=== PATIENT | female | born 1970 | race Caucasian/White ===

== ENCOUNTER 2023-11-29 14:17 | Inpatient (IN) | payer OTHER ==
[2023-11-29 15:15] VITALS: BMI 16.9
[2023-11-29] MEDS: INSULIN (NOVOLOG) ASPART 100 UNITS/ML 10ML VIAL SQ ONE (16:03)
[2023-11-29] MEDS ORDERED: DICYCLOMINE HCL 10 MG CAPSULE PO PRN (17:26)
[2023-11-29] MEDS ORDERED: POLYETHYLENE GLYCOL (HEALTHYLAX) 3350 17 GM PACKET PO PRN (17:26)
[2023-11-29] MEDS ORDERED: ONDANSETRON *ODT* 4 MG TABLET SL PRN (17:26)
[2023-11-29] MEDS ORDERED: MAGNESIUM HYDROX 2400MG/30ML ORAL SUSPENSION 30 ML CUP PO PRN (17:26)
[2023-11-29] MEDS ORDERED: diazePAM 5 MG TABLET PO PRN (17:26)
[2023-11-29] MEDS ORDERED: BENZONATATE 200 MG CAPSULE PO PRN (17:26)
[2023-11-29] MEDS ORDERED: IBUPROFEN 400 MG TABLET (FP) PO PRN (17:26)
[2023-11-29] MEDS ORDERED: NALOXONE HCL (KLOXXADO) 8 MG SPRAY NS PRN (17:26)
[2023-11-29] MEDS ORDERED: guaiFENesin 600 MG TABLET.ER (FP) PO PRN (17:26)
[2023-11-29] MEDS ORDERED: NALOXONE HCL 0.4 MG/ML VIAL IM PRN (17:26)
[2023-11-29] MEDS ORDERED: LOPERAMIDE HCL 2 MG CAPSULE PO PRN (17:26)
[2023-11-29] MEDS ORDERED: BENZOCAINE/MENTHOL (CHLORASEPTIC ) LOZENGE MM PRN (17:26)
[2023-11-29] MEDS ORDERED: IBUPROFEN 600 MG TABLET (FP) PO PRN (17:26)
[2023-11-29] MEDS ORDERED: MAG HYDROX/AL HYDROX/SIMETH 30 ML UNIT-DOSE CUP PO PRN (17:26)
[2023-11-29] MEDS ORDERED: BISMUTH SUBSALICYLATE 524 MG/30 ML PO PRN (17:26)
[2023-11-29] MEDS ORDERED: ALBUTEROL SO4 HFA INHALER IH PRN (17:31)
[2023-11-29] MEDS ORDERED: INSULIN (NOVOLOG) ASPART 100 UNITS/ML 10ML VIAL ONE (18:33)
[2023-11-29] MEDS: INSULIN (NOVOLOG) ASPART 100 UNITS/ML 10ML VIAL SQ SCH (18:35)
[2023-11-29] MEDS: THIAMINE HCL 100 MG TABLET (FP) PO SCH (22:06)
[2023-11-29] MEDS: MELATONIN 5 MG TABLETS PO SCH (22:06)
[2023-11-29] MEDS: diazePAM 5 MG TABLET PO SCH (22:08)
[2023-11-29] MEDS: METHOCARBAMOL 500 MG TABLET PO PRN (22:08)
[2023-11-29] MEDS: INSULIN (LEVEMIR) 100 UNITS/ML UNITS SQ SCH (22:08)
[2023-11-30] MEDS: ACETAMINOPHEN 325 MG TABLET (FP) PO PRN (06:33)
[2023-11-30] MEDS ORDERED: methaDONE HCL 10 MG TABLET PO ONE (09:31)
[2023-11-30] MEDS ORDERED: ALBUTEROL SO4 HFA INHALER IH PRN (09:32)
[2023-11-30] MEDS: PRENATAL VITAMINS W/ FOLIC ACID TABLET (FP) PO SCH (09:43)
[2023-11-30] MEDS: methaDONE 80 MG, methaDONE 20 MG PO ONE (10:00)
[2023-11-30] MEDS: SERTRALINE HCL 50 MG TABLET (FP) PO SCH (11:23)
[2023-11-30 12:06] LABS: CHLORIDE 95 mmol/L (98-107); SODIUM 134 mmol/L (136-145)
[2023-11-30 12:14] LABS: ANION GAP 5 mmol/L (4-13); BLOOD UREA NITROGEN 8.2 mg/dL (7-18); CO2 34 mmol/L (21-32)
[2023-11-30 12:15] LABS: ALBUMIN 2.3 g/dl (3.4-5.0)
[2023-11-30 12:17] LABS: SGPT/ALT 40 U/L (13-61)
[2023-11-30 12:18] LABS: CREATININE 0.8 mg/dL (0.55-1.3); SGOT/AST 33 U/L (15-37)
[2023-11-30 12:19] LABS: BILIRUBIN,TOTAL 0.8 mg/dL (0.2-1)
[2023-11-30 12:20] LABS: ALK PHOS 148 U/L (45-117)
[2023-11-30 12:22] LABS: HEMATOCRIT 40.2 % (32.4-45.2); HEMOGLOBIN 13.6 GM/dL (10.7-15.3); MCH 34.1 pg (25.7-33.7); MCHC 33.8 g/dl (32.0-36.0); MEAN PLT VOLUME 12.9 fl (7.5-11.1); RBC 3.98 M/mm3 (3.60-5.2); RDW 16.7 % (11.6-15.6); WHITE BLOOD COUNT 5.5 K/mm3 (4.0-10.0)
[2023-11-30] MEDS: INSULIN (NOVOLOG) ASPART 100 UNITS/ML 10ML VIAL SQ ONE (12:29)
[2023-11-30 12:34] LABS: GLUCOSE,RANDOM 550 mg/dL (74-106)
[2023-11-30 12:55] LABS: PLATELET COUNT 59 10^3/uL (134-434)
[2023-11-30] MEDS ORDERED: INSULIN (NOVOLOG) ASPART 100 UNITS/ML 10ML VIAL ONE (17:26)
[2023-11-30] MEDS: INSULIN (NOVOLOG) ASPART 100 UNITS/ML 10ML VIAL SQ SCH (17:40)
[2023-11-30] MEDS: INSULIN (LEVEMIR) 100 UNITS/ML UNITS SQ SCH (22:48)
[2023-12-01] MEDS ORDERED: methaDONE HCL 10 MG TABLET PO SCH (06:00)
[2023-12-01] MEDS: methaDONE 80 MG, methaDONE 20 MG PO SCH (06:02)
[2023-12-01] MEDS: diazePAM 5 MG TABLET PO SCH (06:03)
[2023-12-01] MEDS ORDERED: INSULIN (NOVOLOG) ASPART 100 UNITS/ML 10ML VIAL ONE ×2 (17:33→23:00)
[2023-12-01] MEDS: SUVOREXANT 10 MG TABLET PO PRN (23:14)
[2023-12-01] MEDS: hydrOXYzine PAMOATE 25 MG CAPSULE (FP) PO PRN (23:58)
[2023-12-02] MEDS: diazePAM 5 MG TABLET PO SCH (06:36)
[2023-12-03] MEDS: diazePAM 5 MG TABLET PO ONE (06:18)
[2023-12-03] MEDS ORDERED: INSULIN (NOVOLOG) ASPART 100 UNITS/ML 10ML VIAL ONE (16:59)
[2023-12-03] MEDS: LACTULOSE 20 GM/30 ML UDC (FOR ORAL USE ONLY) PO SCH (17:38)
[2023-12-04] MEDS: RIFAXIMIN 550 MG TABLET PO SCH (10:49)
[2023-12-04] MEDS: SULFAMETHOXAZOLE/TRIMETHOPRIM 800MG/160MG D.S. TABLET PO SCH (10:49)
[2023-12-04 21:11] VITALS: RESP 16
[2023-12-04] MEDS: INSULIN (LEVEMIR) 100 UNITS/ML UNITS SQ SCH (21:56)
[2023-12-05] MEDS ORDERED: methaDONE 40 MG, methaDONE 10 MG PO SCH (06:00)
[2023-12-05] MEDS ORDERED: methaDONE HCL 10 MG TABLET PO SCH (06:00)
[2023-12-05] MEDS: methaDONE HCL 40 MG DISPERSABLE TABLET PO SCH (06:02)
[2023-12-05] MEDS ORDERED: cloNIDine HCL 0.1 MG TABLET PO PRN (13:50)
[2023-12-05] MEDS ORDERED: INSULIN (NOVOLOG) ASPART 100 UNITS/ML 10ML VIAL ONE (17:01)
[2023-12-05] MEDS: methaDONE HCL 40 MG DISPERSABLE TABLET PO ONE (17:51)
[2023-12-05] MEDS ORDERED: methaDONE HCL 40 MG DISPERSABLE TABLET PO SCH (18:00)
[2023-12-06 13:04] VITALS: BP 130/78; PULSE 78; TEMP 97.4
[2023-12-06] MEDS ORDERED: methaDONE HCL 10 MG TABLET PO ONE (18:00)
[2023-12-06] MEDS ORDERED: INSULIN (LEVEMIR) 100 UNITS/ML UNITS SQ SCH (22:00)
== END 2023-12-06 14:28 | disposition other institution (70) | DRG 773 ==
LOC: YASAS 14:17 → Y6N 17:49
PROVIDERS: ADMIT Allergy & Immunology; ATTEND Psychiatry & Neurology Pain Medicine
PROC: HZ2ZZZZ Detoxification Services for Substance Abuse Treatment (ICD-10-PCS; principal; 2023-11-29)
DX: F10.230 Alcohol dependence with withdrawal, uncomplicated (principal); F11.20 Opioid dependence, uncomplicated; F14.20 Cocaine dependence, uncomplicated; F17.210 Nicotine dependence, cigarettes, uncomplicated; E78.5 Hyperlipidemia, unspecified; E11.9 Type 2 diabetes mellitus without complications; Z79.4 Long term (current) use of insulin; B18.2 Chronic viral hepatitis C; N39.0 Urinary tract infection, site not specified; R31.9 Hematuria, unspecified; R79.89 Other specified abnormal findings of blood chemistry; Z91.81 History of falling; Z99.89 Dependence on other enabling machines and devices
CPT/HCPCS: 36415; 80053; 80305; 80307; 82140; 82962; 83036; 85027; 86780; 87811; 93005; 93010

== ENCOUNTER 2023-12-03 18:39 | Emergency (ER) | payer OTHER ==
[2023-12-03 19:10] VITALS: BMI 28.3
[2023-12-03] MEDS ORDERED: ACETAMINOPHEN INJECTION 100 ML IVPB ONE (21:06)
[2023-12-03] MEDS: ACETAMINOPHEN 1000 MG/100 ML BAG IVPB ONE (21:44)
[2023-12-03 22:43] LABS: BASO % 0.2 % (0-2.0); EOS % 0.2 % (0-4.5); HEMATOCRIT 38.7 % (32.4-45.2); HEMOGLOBIN 13.1 GM/dL (10.7-15.3); LYMPH % 8.6 % (8-40); MCH 33.5 pg (25.7-33.7); MCHC 33.9 g/dl (32.0-36.0); MEAN CELL VOLUME 98.9 fl (80-96); MEAN PLT VOLUME 10.7 fl (7.5-11.1); MONO % 6.3 % (3.8-10.2); NEUT % 84.7 % (42.8-82.8); PLATELET COUNT 65 10^3/uL (134-434); RBC 3.92 M/mm3 (3.60-5.2); RDW 16.8 % (11.6-15.6); WHITE BLOOD COUNT 9.2 K/mm3 (4.0-10.0)
[2023-12-03 23:08] LABS: POTASSIUM 3.9 mmol/L (3.5-5.1)
[2023-12-03 23:10] LABS: ALBUMIN 2.1 g/dl (3.4-5.0); BLOOD UREA NITROGEN 10.8 mg/dL (7-18); CALCIUM 8.3 mg/dL (8.5-10.1)
[2023-12-03 23:13] LABS: CREATININE 0.7 mg/dL (0.55-1.3)
[2023-12-03 23:15] LABS: BILIRUBIN,TOTAL 1.1 mg/dL (0.2-1); TOT PROT 7.5 g/dl (6.4-8.2)
[2023-12-03] MEDS ORDERED: ACETAMINOPHEN 325 MG TABLET (FP) ONE (23:28)
[2023-12-03] MEDS: ACETAMINOPHEN 500 MG TABLET (FP) PO ONE (23:41)
[2023-12-04 00:48] LABS: EPI CELLS 31 /uL (0-25.1); HYALINE CASTS 0 /uL (0-3.1); URINE APPEARANCE CLOUDY; URINE BACTERIA 178 /uL (0-1359); URINE BILIRUBIN NEGATIVE (NEGATIVE); URINE COLOR DK YELLOW; URINE GLUCOSE (UA) 2+ (NEGATIVE); URINE KETONE NEGATIVE (NEGATIVE); URINE LEUK ESTERASE 1+ (NEGATIVE); URINE NITRITE NEGATIVE (NEGATIVE); URINE PROTEIN NEGATIVE (NEGATIVE); URINE WBC 47 /uL (0-25.8)
[2023-12-04] MEDS ORDERED: SULFAMETHOXAZOLE/TRIMETHOPRIM 800MG/160MG D.S. TABLET ONE (01:37)
[2023-12-04] MEDS: SULFAMETHOXAZOLE/TRIMETHOPRIM 800MG/160MG D.S. TABLET PO ONE (01:40)
[2023-12-04 01:52] VITALS: BP 134/82; PULSE 80; RESP 18; TEMP 99.9
[2023-12-04 09:07] LABS: URINE RBC 529.1 /uL (0-23.9)
== END 2023-12-04 01:52 | disposition home or self-care (01) ==
LOC: JER 18:39
DX: E11.65 Type 2 diabetes mellitus with hyperglycemia (principal); N30.00 Acute cystitis without hematuria; Z20.822 Contact with and (suspected) exposure to COVID-19
CPT/HCPCS: 0241U-QW; 36415; 70450-TC; 71045-TC-FY; 72125-TC; 80053; 81003; 82962; 84484; 85025; 87086; 93005; 93010; 99285-25

== ENCOUNTER 2023-12-06 14:54 | Inpatient (IN) | payer OTHER ==
[~2023-12-06 14:54] MED LIST: ACETAMINOPHEN 325 MG TABLET (FP) PO PRN; ALBUTEROL SO4 HFA INHALER IH PRN; BENZOCAINE/MENTHOL (CHLORASEPTIC ) LOZENGE MM PRN; BENZONATATE 200 MG CAPSULE PO PRN; IBUPROFEN 400 MG TABLET (FP) PO PRN; IBUPROFEN 600 MG TABLET (FP) PO PRN; LOPERAMIDE HCL 2 MG CAPSULE PO PRN; MAG HYDROX/AL HYDROX/SIMETH 30 ML UNIT-DOSE CUP PO PRN; MAGNESIUM HYDROX 2400MG/30ML ORAL SUSPENSION 30 ML CUP PO PRN; NALOXONE HCL (KLOXXADO) 8 MG SPRAY NS PRN; NALOXONE HCL 0.4 MG/ML VIAL IM PRN; NICOTINE 7 MG/24 HOURS TOPICAL PATCH TD PRN; NICOTINE POLACRILEX 2 MG GUM BUC PRN; POLYETHYLENE GLYCOL (HEALTHYLAX) 3350 17 GM PACKET PO PRN; guaiFENesin 600 MG TABLET.ER (FP) PO PRN
[2023-12-06] MEDS ORDERED: INSULIN (NOVOLOG) ASPART 100 UNITS/ML 10ML VIAL ONE (16:48)
[2023-12-06] MEDS: INSULIN ASPART SLIDING SCALE (NOVOLOG) 1 VIAL SQ SCH (17:15)
[2023-12-06] MEDS: methaDONE HCL 40 MG DISPERSABLE TABLET PO SCH (18:25)
[2023-12-06] MEDS: THIAMINE HCL 100 MG TABLET (FP) PO SCH (21:44)
[2023-12-06] MEDS: MELATONIN 5 MG TABLETS PO SCH (21:44)
[2023-12-06] MEDS: SULFAMETHOXAZOLE/TRIMETHOPRIM 800MG/160MG D.S. TABLET PO SCH (21:44)
[2023-12-06] MEDS: RIFAXIMIN 550 MG TABLET PO SCH (21:45)
[2023-12-06] MEDS: INSULIN (LEVEMIR) 100 UNITS/ML UNITS SQ SCH (21:49)
[2023-12-07] MEDS ORDERED: INSULIN (NOVOLOG) ASPART 100 UNITS/ML 10ML VIAL ONE ×4 (06:26→16:42)
[2023-12-07] MEDS: PRENATAL VITAMINS W/ FOLIC ACID TABLET (FP) PO SCH (10:04)
[2023-12-08] MEDS ORDERED: INSULIN (NOVOLOG) ASPART 100 UNITS/ML 10ML VIAL ONE ×2 (06:44→16:57)
[2023-12-09] MEDS ORDERED: INSULIN (NOVOLOG) ASPART 100 UNITS/ML 10ML VIAL ONE ×2 (07:45→11:47)
[2023-12-09] MEDS: FAMOTIDINE 20 MG TABLET PO SCH (15:35)
[2023-12-10] MEDS ORDERED: INSULIN (NOVOLOG) ASPART 100 UNITS/ML 10ML VIAL ONE ×3 (06:29→16:43)
[2023-12-10] MEDS: SIMETHICONE 80 MG TAB.CHEW (FP) PO PRN (09:45)
[2023-12-10 21:51] LABS: EPI CELLS 2 /uL (0-25.1); HYALINE CASTS 0 /uL (0-3.1); URINE APPEARANCE CLOUDY; URINE BACTERIA >9,000 /uL (0-1359); URINE BILIRUBIN NEGATIVE (NEGATIVE); URINE COLOR YELLOW; URINE GLUCOSE (UA) 3+ (NEGATIVE); URINE KETONE NEGATIVE (NEGATIVE); URINE LEUK ESTERASE NEGATIVE (NEGATIVE); URINE NITRITE POSITIVE (NEGATIVE); URINE PROTEIN NEGATIVE (NEGATIVE); URINE WBC 30 /uL (0-25.8)
[2023-12-10 22:39] LABS: URINE RBC 85.8 /uL (0-23.9)
[2023-12-10 22:40] LABS: YEAST PRESENT (NEGATIVE)
[2023-12-10 22:43] LABS: URINE CRYSTALS PRESENT /hpf
[2023-12-11] MEDS ORDERED: INSULIN (NOVOLOG) ASPART 100 UNITS/ML 10ML VIAL ONE ×3 (06:06→12:12)
[2023-12-11 07:01] VITALS: BP 105/76; PULSE 93; RESP 16; TEMP 98.7
== END 2023-12-11 13:00 | disposition left against medical advice (07) | DRG 770 ==
LOC: YASAS 14:54 → Y5N 14:56
PROVIDERS: ADMIT Allergy & Immunology; ATTEND Psychiatry & Neurology Pain Medicine
PROC: HZ42ZZZ Group Counseling for Substance Abuse Treatment, Cognitive-Behavioral (ICD-10-PCS; principal; 2023-12-06)
DX: F11.20 Opioid dependence, uncomplicated (principal); F14.20 Cocaine dependence, uncomplicated; F10.20 Alcohol dependence, uncomplicated; F17.210 Nicotine dependence, cigarettes, uncomplicated; I10 Essential (primary) hypertension; B18.2 Chronic viral hepatitis C; E11.9 Type 2 diabetes mellitus without complications; Z79.4 Long term (current) use of insulin; R79.89 Other specified abnormal findings of blood chemistry; R26.89 Other abnormalities of gait and mobility; Z99.89 Dependence on other enabling machines and devices; Z87.09 Personal history of other diseases of the respiratory system
CPT/HCPCS: 81003; 82962; 87086